=== PATIENT | female | born 1975 | race Caucasian/White ===

== ENCOUNTER → 2022-11-01 12:08 | Outpatient (CLI) | payer OTHER, SELFPAY ==
[2022-11-01 14:05] LABS: Urine Chlamydia NOT DETECTED; Urine N gonorrhoeae NOT DETECTED
== END ==
PROVIDERS: Visit Provider Physician Assistant
DX: N89.8 Other specified noninflammatory disorders of vagina (principal)
CPT/HCPCS: 87086; 87210; 87491; 87591

== ENCOUNTER → 2022-11-10 13:35 | Outpatient (CLI) | payer OTHER, SELFPAY | PROVIDERS: Visit Provider Nurse Practitioner Family | DX: R10.9 Unspecified abdominal pain (principal) | CPT/HCPCS: 87086 ==

== ENCOUNTER → 2022-11-11 15:10 | Outpatient (CLI) | payer OTHER, SELFPAY ==
--- NOTE | 2022-11-11 15:11 | DI.US.S_ITS ---
PROCEDURE: US ABDOMEN LIMITED INDICATIONS: LEFT UPPER QUADRANT PAIN X 2 MONTHS TECHNIQUE: Real-time focused scanning was performed of the abdomen, with image documentation. COMPARISON: None. FINDINGS: Left kidney measures 11.8 cm in length with renal cortical thickness of 9 mm. Multiple shadowing echogenic foci present, largest measuring 3 mm which may represent small nonobstructing renal stones. Increased echogenicity of the renal pyramids suggesting medullary sponge kidney. Spleen is grossly normal 8.4 cm. IMPRESSION: 1. Multiple left renal echogenic foci suspicious for nonobstructing stones, largest measuring 3 mm. If indicated, CT KUB could be performed. 2. Appearance of the kidneys suggesting medullary sponge kidney. Dictated by: Zafar Packer [facility] Interpreted: Daniel Cruz MD on 11/11/2022 at 15:59 Transcribed by: [email or web address] on 11/11/2022 at 16:00 Approved by: Daniel Cruz M.D. on 11/11/2022 at 17:36
== END ==
PROVIDERS: Referring Provider Nurse Practitioner Family; Visit Provider Nurse Practitioner Family
DX: R10.9 Unspecified abdominal pain (principal)
CPT/HCPCS: 76705